=== PATIENT | male | born 1995 | race Hispanic/Latino ===

== ENCOUNTER 2016-06-30 02:41 | Emergency (ER) | payer SELFPAY ==
[~2016-06-30 02:41] MED LIST: IBUPROFEN600 M1 PO; ZOFRAN ODT4 M1 PO
== END 2016-06-30 03:00 | disposition admitted as inpatient to this hospital (09) ==
LOC: ERH 02:41
DX: S61.211A Laceration without foreign body of left index finger without damage to nail, initial encounter (principal); W26.0XXA Contact with knife, initial encounter